=== PATIENT | male | born 1955 | race Caucasian/White ===

== ENCOUNTER 2017-10-16 00:04 | Inpatient (IN) | payer OTHER ==
[2017-10-16] VITALS (14 sets, daily range): BP systolic 111–144; BP diastolic 66–82; PULSE 66–89; RESP 16–22; TEMP 98.4–99.4; O2SAT 86–97
[~2017-10-16] VITALS: Ht 182.9 cm; Wt 115.7 kg
[2017-10-16] MEDS ORDERED: MORPHINE SULFATE 4 MG/ML INJ IV PUSH ONE (00:30)
[2017-10-16 00:51] LABS: AUTOMATED NEUTROPHIL # 12.1 TH/MM3 (1.8-7.7); BASOPHIL % 0.3 % (0.0-2.0); EOSINOPHIL % 0.1 % (0.0-4.0); HEMATOCRIT 35.8 % (39.0-51.0); HEMOGLOBIN 12.6 GM/DL (13.0-17.0); LYMPH % 11.9 % (9.0-44.0); LYMPHOCYTE # 1.7 TH/MM3 (1.0-4.8); MEAN CELL VOLUME 88.4 FL (80.0-100.0); MEAN CORPUSCULAR HEMOGLOBIN 31.1 PG (27.0-34.0); MEAN CORPUSCULAR HGB CONC 35.2 % (32.0-36.0); MONO % 5.2 % (0.0-8.0); MONOCYTE # 0.8 TH/MM3 (0-0.9); NEUT % 82.5 % (16.0-70.0); PLATELET COUNT 172 TH/MM3 (150-450); RED BLOOD COUNT 4.05 MIL/MM3 (4.50-5.90); RED CELL DISTRIBUTION WIDTH 13.5 % (11.6-17.2); WHITE BLOOD COUNT 14.6 TH/MM3 (4.0-11.0)
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
[2017-10-16] MEDS ORDERED: SODIUM CHLOR 0.9% 1000 ML INJ 1,000 ML IV SCH (01:26)
[2017-10-16] MEDS ORDERED: MISCELLANEOUS NURSING INFORMATION XX SCH (01:30)
[2017-10-16] MEDS ORDERED: NALOXONE HCL 0.4 MG/ML AMP IV PUSH PRN (01:30)
[2017-10-16] MEDS ORDERED: CHLORHEXIDINE GLUCONATE 2 % 1 PACK (2 CLOTHS) TOP PRN (01:30)
[2017-10-16] MEDS ORDERED: LACTULOSE SYRUP 20 GM/30 ML CUP PO PRN (01:30)
[2017-10-16] MEDS ORDERED: ONDANSETRON HCL 4 MG/2 ML VIAL IV PUSH PRN (01:30)
[2017-10-16] MEDS ORDERED: BISACODYL 10 MG SUPP RECTAL PRN (01:30)
[2017-10-16] MEDS ORDERED: AMLO5TAB2 PO (01:52)
[2017-10-16] MEDS ORDERED: METO1TAB42 PO (01:52)
[2017-10-16] MEDS ORDERED: LISI-515 PO (01:52)
[2017-10-16] MEDS ORDERED: SITA1TAB2 PO (01:52)
[2017-10-16] MEDS ORDERED: ASPI-516 CHEW (01:52)
[2017-10-16] MEDS ORDERED: ATOR20TA15 PO (01:52)
[2017-10-16] MEDS ORDERED: METF1000 PO (01:52)
[2017-10-16] MEDS ORDERED: GLIP10TA6 PO (01:52)
[2017-10-16] MEDS ORDERED: CLON0.1T PO (01:52)
[2017-10-16] MEDS: ACETAMINOPHEN 1000 MG/100 ML 100 ML IV SCH ×4 (03:01→18:02)
[2017-10-16] MEDS: HYDROmorphone HCL PCA 6 MG/30 ML IV SCH ×2 (03:03→20:49)
[2017-10-16] MEDS: CHLORHEXIDINE GLUCONATE 2 % 1 PACK (2 CLOTHS) TOP SCH (04:00)
[2017-10-16] MEDS ORDERED: IOHEXOL 350 MG/ML 10 ML VIAL (for RAD DIAG) IVCONTRAST ONE (05:15)
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
[2017-10-16] MEDS: PCA - TOTAL MG DILAUDID DELIVERED PER SHIFT OTHER SCH ×3 (06:00→20:49)
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
[2017-10-16] MEDS: RESP: ALBUTEROL 2.5 MG/IPRATROPIUM 0.5 MG NEB (SCH) NEB ×4 (08:30→19:40)
[2017-10-16] MEDS: DOCUSATE SODIUM 50 MG/SENNA 8.6 MG TAB PO SCH ×2 (08:38→20:50)
[2017-10-16] MEDS: GABAPENTIN 100 MG CAP PO SCH ×3 (08:38→18:02)
[2017-10-16] MEDS: LACTULOSE SYRUP 20 GM/30 ML CUP PO SCH (09:00)
[2017-10-16] MEDS ORDERED: cloNIDine HCL 0.1 MG TAB PO SCH (09:15)
[2017-10-16] MEDS: glipiZIDE 10 MG TAB PO SCH (09:15)
[2017-10-16] MEDS ORDERED: DEXTROSE 50% IN WATER 50 ML VIAL(D50) IV PUSH PRN (09:15)
[2017-10-16] MEDS ORDERED: GLUCAGON 1 MG/ML VIAL OTHER PRN (09:15)
[2017-10-16] MEDS: BACITRACIN TOP OINT 15 GM TUBE TOP SCH ×2 (10:30→20:50)
[2017-10-16] MEDS: LISINOPRIL 20 MG TAB PO SCH (10:40)
[2017-10-16] MEDS: METOPROLOL SUCCINATE 25 MG EXTENDED RELEASE TAB PO SCH (10:40)
[2017-10-16] MEDS: amLODIPine BESYLATE 5 MG TAB PO SCH (10:40)
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
[2017-10-16] MEDS: INSULIN NovoLIN REGULAR SUPPLEMENTAL SCALE SQ SCH ×3 (12:47→21:00)
[2017-10-16 13:32] LABS: AUTOMATED NEUTROPHIL # 7.2 TH/MM3 (1.8-7.7); BASOPHIL % 0.1 % (0.0-2.0); EOSINOPHIL # 0.1 TH/MM3 (0-0.4); EOSINOPHIL % 0.6 % (0.0-4.0); HEMATOCRIT 32.5 % (39.0-51.0); HEMOGLOBIN 11.5 GM/DL (13.0-17.0); LYMPH % 21.2 % (9.0-44.0); LYMPHOCYTE # 2.2 TH/MM3 (1.0-4.8); MEAN CELL VOLUME 86.6 FL (80.0-100.0); MEAN CORPUSCULAR HEMOGLOBIN 30.6 PG (27.0-34.0); MEAN CORPUSCULAR HGB CONC 35.4 % (32.0-36.0); MEAN PLATELET VOLUME 7.5 FL (7.0-11.0); MONO % 9.2 % (0.0-8.0); NEUT % 68.9 % (16.0-70.0); PLATELET COUNT 165 TH/MM3 (150-450); RED BLOOD COUNT 3.76 MIL/MM3 (4.50-5.90); RED CELL DISTRIBUTION WIDTH 13.6 % (11.6-17.2); WHITE BLOOD COUNT 10.4 TH/MM3 (4.0-11.0)
[2017-10-16 13:43] LABS: BICARBONATE 24.8 MEQ/L (21.0-32.0); CREATININE 1.28 MG/DL (0.60-1.30)
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
--- NOTE | 2017-10-16 17:55 | EKG ---
Date Performed: 10/16/2017 Time Performed: 11:11:56 PTAGE: 61 years EKG: Sinus rhythm Nonspecific T-wave change Borderline ECG NO PREVIOUS TRACING DOCTOR: Noe Payne Interpretating Date/Time 10/16/2017 17:54:47
[2017-10-16] MEDS: cloNIDine HCL 0.1 MG TAB PO SCH (20:50)
[2017-10-16] MEDS: ATORVASTATIN 20 MG TAB PO SCH (20:50)
[2017-10-17] VITALS (7 sets, daily range): BP systolic 121–151; BP diastolic 73–84; PULSE 76–88; RESP 16–18; TEMP 98.7–101; O2SAT 92–97
[2017-10-17] MEDS: CHLORHEXIDINE GLUCONATE 2 % 1 PACK (2 CLOTHS) TOP SCH ×2 (04:00→21:08)
[2017-10-17 05:11] LABS: AUTOMATED NEUTROPHIL # 6.7 TH/MM3 (1.8-7.7); BASOPHIL % 0.4 % (0.0-2.0); EOSINOPHIL # 0.1 TH/MM3 (0-0.4); EOSINOPHIL % 1.3 % (0.0-4.0); HEMATOCRIT 32.2 % (39.0-51.0); HEMOGLOBIN 11.2 GM/DL (13.0-17.0); LYMPH % 24.4 % (9.0-44.0); LYMPHOCYTE # 2.6 TH/MM3 (1.0-4.8); MEAN CELL VOLUME 89.9 FL (80.0-100.0); MEAN CORPUSCULAR HEMOGLOBIN 31.2 PG (27.0-34.0); MEAN CORPUSCULAR HGB CONC 34.8 % (32.0-36.0); MEAN PLATELET VOLUME 7.9 FL (7.0-11.0); MONO % 10.2 % (0.0-8.0); MONOCYTE # 1.1 TH/MM3 (0-0.9); NEUT % 63.7 % (16.0-70.0); PLATELET COUNT 154 TH/MM3 (150-450); RED BLOOD COUNT 3.58 MIL/MM3 (4.50-5.90); RED CELL DISTRIBUTION WIDTH 13.9 % (11.6-17.2); WHITE BLOOD COUNT 10.5 TH/MM3 (4.0-11.0)
[2017-10-17 05:22] LABS: BICARBONATE 25.5 MEQ/L (21.0-32.0); CALCIUM 8.1 MG/DL (8.5-10.1); CREATININE 1.52 MG/DL (0.60-1.30)
[2017-10-17] MEDS: PCA - TOTAL MG DILAUDID DELIVERED PER SHIFT OTHER SCH (05:50)
--- NOTE | 2017-10-17 05:50 | RADRPT ---
EXAM DATE/TIME: 10/17/2017 04:43 [facility] COMPARISON: CHEST SINGLE AP, October 16, 2017, 10:18. INDICATIONS : Short of breath. MEDICAL HISTORY : Hypertension. Diabetes mellitus type 2. SURGICAL HISTORY : Prostatectomy. ENCOUNTER: Subsequent ACUITY: 1 day PAIN SCORE: Non-responsive. LOCATION: Bilateral chest FINDINGS: A single view of the chest demonstrates hypoinflation with persistent left basilar consolidation. Rig ht lung is grossly clear. Heart size is prominent or compensated. Left clavicular fracture. CONCLUSION: Left basilar consolidation, unchanged. Left clavicular fracture. Percy Wiseman MD on October 17, 2017 at 5:48 Board Certified Radiologist. This report was verified electronically.
[2017-10-17] MEDS: INSULIN NovoLIN REGULAR SUPPLEMENTAL SCALE SQ SCH ×4 (08:13→21:07)
[2017-10-17] MEDS: METHOCARBAMOL 500 MG TAB PO SCH ×3 (08:14→21:08)
[2017-10-17] MEDS: glipiZIDE 10 MG TAB PO SCH (08:15)
[2017-10-17] MEDS: DOCUSATE SODIUM 50 MG/SENNA 8.6 MG TAB PO SCH ×2 (08:16→21:06)
[2017-10-17] MEDS: GABAPENTIN 100 MG CAP PO SCH ×3 (08:16→17:09)
[2017-10-17] MEDS: LISINOPRIL 20 MG TAB PO SCH (08:17)
[2017-10-17] MEDS: LACTULOSE SYRUP 20 GM/30 ML CUP PO SCH (08:17)
[2017-10-17] MEDS: amLODIPine BESYLATE 5 MG TAB PO SCH (08:17)
[2017-10-17] MEDS: BACITRACIN TOP OINT 15 GM TUBE TOP SCH ×2 (08:17→21:07)
[2017-10-17] MEDS: METOPROLOL SUCCINATE 25 MG EXTENDED RELEASE TAB PO SCH (08:17)
[2017-10-17] MEDS: RESP: ALBUTEROL 2.5 MG/IPRATROPIUM 0.5 MG NEB (SCH) NEB ×3 (08:58→19:08)
[2017-10-17] MEDS ORDERED: MORPHINE SULFATE 4 MG/ML INJ IV PUSH PRN (12:45)
[2017-10-17] MEDS ORDERED: SODIUM CHLOR 0.9% 1000 ML INJ 1,000 ML IV ONE (12:45)
[2017-10-17] MEDS ORDERED: oxyCODONE/ACETAMINOPHEN 5 MG/325 MG TAB PO PRN (12:45)
[2017-10-17] MEDS ORDERED: fentaNYL 50 MCG/HR PATCH T-DERMAL SCH (13:00)
[2017-10-17] MEDS: oxyCODONE/ACETAMINOPHEN 10 MG/325 MG TAB PO PRN (13:35)
[2017-10-17] MEDS ORDERED: METHOCARBAMOL 500 MG TAB PO SCH (14:00)
[2017-10-17] MEDS: LIDOCAINE HCL 5% PATCH T-DERMAL SCH (15:11)
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
[2017-10-17] MEDS: REMOVE OLD LIDOCAINE PATCH T-DERMAL SCH (21:00)
[2017-10-17] MEDS: cloNIDine HCL 0.1 MG TAB PO SCH (21:06)
[2017-10-17] MEDS: ATORVASTATIN 20 MG TAB PO SCH (21:06)
[2017-10-18] VITALS (8 sets, daily range): BP systolic 113–184; BP diastolic 68–104; PULSE 81–111; RESP 17–19; TEMP 98–100.9; O2SAT 91–96
[2017-10-18] MEDS: oxyCODONE/ACETAMINOPHEN 10 MG/325 MG TAB PO PRN ×5 (04:08→21:09)
[2017-10-18 04:24] LABS: HEMATOCRIT 28.8 % (39.0-51.0)
[2017-10-18 04:47] LABS: ALBUMIN 3.3 GM/DL (3.4-5.0); ALT (GPT) 26 U/L (12-78); AST (GOT) 43 U/L (15-37); BICARBONATE 28.3 MEQ/L (21.0-32.0); BLOOD UREA NITROGEN 41 MG/DL (7-18); CHLORIDE 100 MEQ/L (98-107); CREATININE 1.66 MG/DL (0.60-1.30); GLOMERULAR FILTRATION RATE 42 ML/MIN (>89); GLUCOSE,RANDOM 155 MG/DL (74-106); SODIUM (NA) 136 MEQ/L (136-145)
[2017-10-18 04:49] LABS: ALKALINE PHOSPHATASE 43 U/L (45-117); TOTAL BILIRUBIN ADULT 0.7 MG/DL (0.2-1.0); TOTAL PROTEIN 6.9 GM/DL (6.4-8.2)
[2017-10-18] MEDS ORDERED: SODIUM CHLOR 0.9% 1000 ML INJ 1,000 ML IV ONE (06:45)
--- NOTE | 2017-10-18 07:09 | RADRPT ---
EXAM DATE/TIME: 10/18/2017 05:37 [facility] COMPARISON: CHEST SINGLE AP, October 17, 2017, 4:43. INDICATIONS : Chest pain, follow up trauma, evaluate hemothorax MEDICAL HISTORY : Hypertension. Diabetes mellitus type II. hemothorax SURGICAL HISTORY : Prostatectomy. ENCOUNTER: Subsequent ACUITY: 3 days PAIN SCORE: 10/10 LOCATION: Bilateral chest FINDINGS: The patient's chin obscures portions of the pulmonary apices. Persistent and increasing consolidatio n left mid and lower lung with loss of delineation of the entire left hemidiaphragm and portions of t he left heart border. Right lung is clear. Comminuted fracture of the mid left clavicle and left sc apula. CONCLUSION: Increasing consolidation left mid and lower lung. Jose Luis Varma MD on October 18, 2017 at 7:06 Board Certified Radiologist. This report was verified electronically.
[2017-10-18] MEDS: RESP: ALBUTEROL 2.5 MG/IPRATROPIUM 0.5 MG NEB (SCH) NEB ×4 (07:47→20:03)
[2017-10-18] MEDS: INSULIN NovoLIN REGULAR SUPPLEMENTAL SCALE SQ SCH ×4 (08:00→20:50)
[2017-10-18] MEDS: METHOCARBAMOL 500 MG TAB PO SCH ×3 (08:00→18:48)
[2017-10-18] MEDS: DOCUSATE SODIUM 50 MG/SENNA 8.6 MG TAB PO SCH ×2 (08:58→20:49)
[2017-10-18] MEDS: METOPROLOL SUCCINATE 25 MG EXTENDED RELEASE TAB PO SCH (08:58)
[2017-10-18] MEDS: GABAPENTIN 100 MG CAP PO SCH ×3 (08:58→17:46)
[2017-10-18] MEDS: amLODIPine BESYLATE 5 MG TAB PO SCH (08:58)
[2017-10-18] MEDS: LISINOPRIL 20 MG TAB PO SCH (08:58)
[2017-10-18] MEDS: glipiZIDE 10 MG TAB PO SCH (08:59)
[2017-10-18] MEDS: BACITRACIN TOP OINT 15 GM TUBE TOP SCH ×2 (08:59→20:48)
[2017-10-18] MEDS: LIDOCAINE HCL 5% PATCH T-DERMAL SCH (09:00)
[2017-10-18] MEDS: LACTULOSE SYRUP 20 GM/30 ML CUP PO SCH (09:00)
[2017-10-18] MEDS: SODIUM CHLOR 0.9% 1000 ML INJ 1,000 ML IV SCH ×2 (09:04→17:46)
[2017-10-18] MEDS: MAGNESIUM HYDROXIDE SUSP 30 ML CUP PO PRN (16:45)
[2017-10-18] MEDS: SENNOSIDES 8.6 MG TAB PO PRN ×2 (16:45→20:49)
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
[2017-10-18 19:01] LABS: AMORPHOUS SEDIMENT, URINE RARE; BILIRUBIN, URINE NEG (NEG); BLOOD, URINE TRACE (NEG); GLUCOSE,URINE NEG (NEG); HYALINE CAST, URINE 6 /lpf (RARE); KETONE, URINE NEG (NEG); MUCUS URINE FEW /lpf (OCC); NITRITE,URINE NEG (NEG); SQUAMOUS EPITHELIAL CELL URINE <1 /hpf (0-5); URINE COLOR YELLOW (YELLW/STRAW); URINE LEUKOCYTE ESTERASE NEG (NEG)
[2017-10-18 19:04] LABS: CREATININE, RANDOM URINE 157.8 MG/DL
[2017-10-18] MEDS: cloNIDine HCL 0.1 MG TAB PO SCH (20:49)
[2017-10-18] MEDS: ATORVASTATIN 20 MG TAB PO SCH (20:49)
[2017-10-18] MEDS: REMOVE OLD LIDOCAINE PATCH T-DERMAL SCH (20:49)
[2017-10-19] VITALS (7 sets, daily range): BP systolic 133–158; BP diastolic 73–83; PULSE 83–94; RESP 19–21; TEMP 97.4–100.3; O2SAT 92–97
[2017-10-19] MEDS: SODIUM CHLOR 0.9% 1000 ML INJ 1,000 ML IV SCH (02:15)
[2017-10-19] MEDS: MAGNESIUM HYDROXIDE SUSP 30 ML CUP PO PRN (02:16)
[2017-10-19] MEDS: oxyCODONE/ACETAMINOPHEN 10 MG/325 MG TAB PO PRN ×5 (02:16→22:03)
[2017-10-19] MEDS: CHLORHEXIDINE GLUCONATE 2 % 1 PACK (2 CLOTHS) TOP SCH (03:16)
[2017-10-19 04:37] LABS: BICARBONATE 27.6 MEQ/L (21.0-32.0); CREATININE 1.8 MG/DL (0.60-1.30)
[2017-10-19] MEDS: RESP: ALBUTEROL 2.5 MG/IPRATROPIUM 0.5 MG NEB (SCH) NEB ×4 (07:42→19:18)
[2017-10-19] MEDS: INSULIN NovoLIN REGULAR SUPPLEMENTAL SCALE SQ SCH ×4 (08:00→22:02)
[2017-10-19] MEDS: GABAPENTIN 100 MG CAP PO SCH ×3 (08:25→17:46)
[2017-10-19] MEDS: LISINOPRIL 20 MG TAB PO SCH (08:25)
[2017-10-19] MEDS: glipiZIDE 10 MG TAB PO SCH (08:25)
[2017-10-19] MEDS: LACTULOSE SYRUP 20 GM/30 ML CUP PO SCH (08:25)
[2017-10-19] MEDS: METHOCARBAMOL 500 MG TAB PO SCH ×2 (08:26→16:00)
[2017-10-19] MEDS: amLODIPine BESYLATE 5 MG TAB PO SCH (08:26)
[2017-10-19] MEDS: DOCUSATE SODIUM 50 MG/SENNA 8.6 MG TAB PO SCH ×2 (08:26→22:01)
[2017-10-19] MEDS: BACITRACIN TOP OINT 15 GM TUBE TOP SCH ×2 (08:26→22:01)
[2017-10-19] MEDS: METOPROLOL SUCCINATE 25 MG EXTENDED RELEASE TAB PO SCH (08:26)
[2017-10-19] MEDS: LIDOCAINE HCL 5% PATCH T-DERMAL SCH (08:29)
[2017-10-19] MEDS: fentaNYL 50 MCG/HR PATCH T-DERMAL SCH (10:21)
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
[2017-10-19] MEDS: HEPARIN SODIUM - SQ 10,000 UNITS/ML VIAL SQ SCH (17:57)
--- NOTE | 2017-10-19 20:10 | RADRPT ---
EXAM DATE/TIME: 10/19/2017 16:39 [facility] COMPARISON: No previous studies available for comparison. INDICATIONS : Increased Bun and Creatinine. MEDICAL HISTORY : Hypertension. Diabetes mellitus type 2. SURGICAL HISTORY : Prostatectomy. ENCOUNTER: Initial ACUITY: 1 day PAIN SCORE: 7/10 LOCATION: Bilateral flank MEASUREMENTS: RIGHT KIDNEY: 10.8 x 6.9 x 6.0 cm LEFT KIDNEY: 11.1 x 5.4 x 6.9 cm FINDINGS: No hydronephrosis. No suspicious renal mass identified. No perinephric fluid. 2.2 cm cyst lower pole left kidney. Bladder unremarkable. CONCLUSION: 1. No acute findings. 2.2 cm cyst left kidney. Bladder unremarkable. Fermín Warren MD on October 19, 2017 at 20:06 Board Certified Radiologist. This report was verified electronically.
[2017-10-19] MEDS: REMOVE OLD LIDOCAINE PATCH T-DERMAL SCH (21:00)
[2017-10-19] MEDS: ATORVASTATIN 20 MG TAB PO SCH (22:01)
[2017-10-19] MEDS: cloNIDine HCL 0.1 MG TAB PO SCH (22:01)
[2017-10-20] MEDS: HEPARIN SODIUM - SQ 10,000 UNITS/ML VIAL SQ SCH ×3 (01:50→16:14)
[2017-10-20] MEDS: oxyCODONE/ACETAMINOPHEN 10 MG/325 MG TAB PO PRN ×2 (01:50→06:15)
[2017-10-20] MEDS: METHOCARBAMOL 500 MG TAB PO SCH ×4 (01:51→23:26)
[2017-10-20 03:50] VITALS: BP 136/72; PULSE 84; RESP 18; TEMP 97.8; O2SAT 93
[2017-10-20] MEDS: CHLORHEXIDINE GLUCONATE 2 % 1 PACK (2 CLOTHS) TOP SCH (04:00)
[2017-10-20 04:32] LABS: BICARBONATE 28.2 MEQ/L (21.0-32.0); CREATININE 1.36 MG/DL (0.60-1.30)
--- NOTE | 2017-10-20 06:09 | RADRPT ---
EXAM DATE/TIME: 10/20/2017 05:06 [facility] COMPARISON: CHEST SINGLE AP, October 18, 2017, 5:37. INDICATIONS : Short of breath. MEDICAL HISTORY : Hypertension. Diabetes mellitus type II. hemothorax SURGICAL HISTORY : Prostatectomy. ENCOUNTER: Subsequent ACUITY: 1 week PAIN SCORE: 0/10 LOCATION: Bilateral chest FINDINGS: Persistent consolidation in the left mid and lower lung and hazy opacity throughout the entire left h emithorax. Right lung is clear. The heart is normal size. CONCLUSION: Persistent consolidation left mid and lower lung and probable increasing left pleural effusion. Jose Luis Varma MD on October 20, 2017 at 6:07 Board Certified Radiologist. This report was verified electronically.
[2017-10-20 07:40] VITALS: BP 142/73; PULSE 84; RESP 21; TEMP 98.7; O2SAT 93
[2017-10-20] MEDS: METOPROLOL SUCCINATE 25 MG EXTENDED RELEASE TAB PO SCH (08:09)
[2017-10-20] MEDS: DOCUSATE SODIUM 50 MG/SENNA 8.6 MG TAB PO SCH ×2 (08:09→21:14)
[2017-10-20] MEDS: GABAPENTIN 100 MG CAP PO SCH ×3 (08:09→17:05)
[2017-10-20] MEDS: glipiZIDE 10 MG TAB PO SCH (08:09)
[2017-10-20] MEDS: amLODIPine BESYLATE 5 MG TAB PO SCH (08:09)
[2017-10-20] MEDS: LACTULOSE SYRUP 20 GM/30 ML CUP PO SCH (08:10)
[2017-10-20] MEDS: LIDOCAINE HCL 5% PATCH T-DERMAL SCH (08:19)
[2017-10-20] MEDS: BACITRACIN TOP OINT 15 GM TUBE TOP SCH ×2 (08:20→21:15)
[2017-10-20] MEDS: INSULIN NovoLIN REGULAR SUPPLEMENTAL SCALE SQ SCH ×4 (08:41→21:17)
--- NOTE | 2017-10-20 10:49 | HHI.NPPN ---
Subjective Renal Failure: Acute Interval History Standing at bedside. He was retaining urine therefor a luis was placed. Renal function has improved. (Elizabeth Valenzuela) Objective Data Data 10/20/17 10/21/17 18:59 06:59 Intake Total 480 ml Output Total 400 ml Balance 80 ml Intake Oral 480 ml Output Urine Total 400 ml # Bowel Movements 0 Vital Signs Date Time Temp Pulse Resp B/P (MAP) Pulse Ox O2 Delivery O2 Flow Rate FiO2 10/20/17 07:40 98.7 84 21 142/73 (96) 93 10/20/17 03:50 97.8 84 18 136/72 (93) 93 10/19/17 23:10 97.4 89 20 134/83 (100) 94 10/19/17 19:30 100.3 94 20 158/79 (105) 93 10/19/17 15:36 97 Nasal Cannula 4.00 10/19/17 15:03 99.6 83 19 149/74 (99) 94 10/19/17 11:39 98.7 88 21 150/81 (104) 92 (Elizabeth Valenzuela) -: 10/18/17 0400 10/20/17 0317 Imaging Last 72 hours Impressions Chest X-Ray 10/20/17 0600 Signed Impressions: Service Date/Time: Friday, October 20, 2017 05:06 - CONCLUSION: Persistent consolidation left mid and lower lung and probable increasing left pleural effusion. Jose Luis Varma MD Renal Ultrasound 10/19/17 0000 Signed Impressions: Service Date/Time: Thursday, October 19, 2017 16:39 - CONCLUSION: 1. No acute findings. 2.2 cm cyst left kidney. Bladder unremarkable. Fermín Warren MD Chest X-Ray 10/18/17 0600 Signed Impressions: Service Date/Time: Wednesday, October 18, 2017 05:37 - CONCLUSION: Increasing consolidation left mid and lower lung. Jose Luis Varma MD Tubes & Lines: Luis (Elizabeth Valenzuela) Physical Exam General Appearance: Well Developed, Well Nourished, Comfortable, Obese (Elizabeth Valenzuela) Eyes Eye Exam: Pupils Equal (Elizabeth Valenzuela) Throat Throat Exam: Oral Mucosa [place] & Moist (Elizabeth Valenzuela) Neck Neck Exam: Neck Supple (Elizabeth Valenzuela) Pulmonary Resp Exam: Clear Bilaterally, Breath Sounds Equal (Elizabeth Valenzuela) Cardiology CV Exam: Regular, Normal Sinus Rhythm (Elizabeth Valenzuela) Gastrointestinal/Abdomen GI Exam: Soft, Non-Tender, Bowel Sounds Present (Elizabeth Valenzuela) Musculoskeletal MS Exam: Joints Intact, Normal Gait, Normal Tone (Elizabeth Valenzuela) Integumentary Skin Exam: Clear, Warm, Dry (Elizabeth Valenzuela) Extremeties Extremities Exam: No Edema, Pedal Pulses Palpable (Elizabeth Valenzuela) Neurologic Neuro Exam: Alert, Awake, Oriented, Speech Clear, Moving All Extremities (Elizabeth Valenzuela) Psychiatric Psych Exam: Appropriate Responses (Elizabeth Valenzuela) Assessment/Plan Discussed Condition With: Patient Assessment Summary: DORA/Acute Renal Failure Problem List: (1) DORA (acute kidney injury) ICD Codes: N17.9 - Acute kidney failure, unspecified Plan: Unknown baseline DORA due to urinary retention, most likely due to narcotic use s/p luis placement, he is non oliguric renal function has improved. Attempt voiding trial tomorrow after bronch, if successful he can be discharged UA unremarkable Off IVF Normal renal US (2) Trauma ICD Codes: T14.90XA - Injury, unspecified, initial encounter Plan: Non surgical management PRN pain medications. (Elizabeth Valenzuela) Problem List: (1) DORA (acute kidney injury) ICD Codes: N17.9 - Acute kidney failure, unspecified Plan: Unknown baseline DORA due to urinary retention, most likely due to narcotic use s/p luis placement, he is non oliguric renal function has improved. Attempt voiding trial tomorrow after bronch, if successful he can be discharged UA unremarkable Off IVF Normal renal US (2) Trauma ICD Codes: T14.90XA - Injury, unspecified, initial encounter Plan: Non surgical management PRN pain medications. Plan patient was seen and examined. Agree with above assessment and plan. (To Tavera MD) Elizabeth Valenzuela Oct 20, 2017 10:49 To Tavera MD Oct 20, 2017 20:53
[2017-10-20 11:52] VITALS: BP 134/78; PULSE 76; RESP 21; TEMP 96.9; O2SAT 95
[2017-10-20 12:00] VITALS: BP 185/88; PULSE 93; RESP 18; TEMP 100.3; O2SAT 93
[2017-10-20] MEDS ORDERED: REMOVE OLD DURAGESIC (FENTANYL) PATCH T-DERMAL SCH (13:00)
[2017-10-20 15:39] VITALS: BP 181/76; PULSE 94; RESP 21; TEMP 99.2; O2SAT 93
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
[2017-10-20] MEDS: ATORVASTATIN 20 MG TAB PO SCH (21:14)
[2017-10-20] MEDS: cloNIDine HCL 0.1 MG TAB PO SCH (21:14)
[2017-10-20] MEDS: REMOVE OLD LIDOCAINE PATCH T-DERMAL SCH (21:24)
[2017-10-20 21:56] VITALS: O2SAT 97
[2017-10-21 00:31] VITALS: BP 149/76; PULSE 92; RESP 18; TEMP 100.2; O2SAT 93
[2017-10-21] MEDS ORDERED: SODIUM CHLORID 0.9% 500 ML IV PRN (02:00)
[2017-10-21] MEDS ORDERED: POVIDONE IODINE 5% (ANTISEPSIS KIT) 4 APPLICATIONS EACH NARE PRN (02:00)
[2017-10-21] MEDS ORDERED: LACTATED RINGER'S 1000 ML IV PRN (02:00)
[2017-10-21] MEDS ORDERED: CHLORHEXIDINE GLUCONATE 2 % 1 PACK (2 CLOTHS) TOPICAL PRN (02:00)
[2017-10-21] MEDS: HEPARIN SODIUM - SQ 10,000 UNITS/ML VIAL SQ SCH ×3 (02:14→16:06)
[2017-10-21] MEDS: CHLORHEXIDINE GLUCONATE 2 % 1 PACK (2 CLOTHS) TOP SCH (03:05)
[2017-10-21] MEDS: oxyCODONE/ACETAMINOPHEN 10 MG/325 MG TAB PO PRN ×4 (03:06→20:30)
[2017-10-21 04:51] LABS: HEMATOCRIT 26.9 % (39.0-51.0); HEMOGLOBIN 9.6 GM/DL (13.0-17.0); MEAN CELL VOLUME 88.1 FL (80.0-100.0); MEAN CORPUSCULAR HEMOGLOBIN 31.4 PG (27.0-34.0); MEAN CORPUSCULAR HGB CONC 35.6 % (32.0-36.0); MEAN PLATELET VOLUME 7.8 FL (7.0-11.0); PLATELET COUNT 206 TH/MM3 (150-450); RED BLOOD COUNT 3.05 MIL/MM3 (4.50-5.90); RED CELL DISTRIBUTION WIDTH 13.4 % (11.6-17.2); WHITE BLOOD COUNT 7.9 TH/MM3 (4.0-11.0)
[2017-10-21 05:21] LABS: BICARBONATE 25.6 MEQ/L (21.0-32.0); CALCIUM 8.2 MG/DL (8.5-10.1); CREATININE 1.17 MG/DL (0.60-1.30)
[2017-10-21 05:59] VITALS: BP 127/78; PULSE 80; RESP 18; TEMP 98.1; O2SAT 97
[2017-10-21] MEDS: INSULIN NovoLIN REGULAR SUPPLEMENTAL SCALE SQ SCH ×4 (07:30→20:31)
[2017-10-21 08:00] VITALS: BP 109/68; PULSE 75; RESP 20; TEMP 98.1; O2SAT 98
[2017-10-21] MEDS: METHOCARBAMOL 500 MG TAB PO SCH ×2 (08:19→17:15)
[2017-10-21] MEDS: METOPROLOL SUCCINATE 25 MG EXTENDED RELEASE TAB PO SCH (08:19)
[2017-10-21] MEDS: GABAPENTIN 100 MG CAP PO SCH ×3 (08:19→17:16)
[2017-10-21] MEDS: glipiZIDE 10 MG TAB PO SCH (08:26)
[2017-10-21] MEDS: LACTULOSE SYRUP 20 GM/30 ML CUP PO SCH (08:27)
[2017-10-21] MEDS: amLODIPine BESYLATE 5 MG TAB PO SCH (08:27)
[2017-10-21] MEDS: DOCUSATE SODIUM 50 MG/SENNA 8.6 MG TAB PO SCH ×2 (08:28→20:29)
[2017-10-21] MEDS: LIDOCAINE HCL 5% PATCH T-DERMAL SCH (08:28)
[2017-10-21] MEDS: BACITRACIN TOP OINT 15 GM TUBE TOP SCH ×3 (08:28→20:33)
[2017-10-21] MEDS ORDERED: DO NOT ADM ANY ANTICOAGULANT DRUGS PRN (12:11)
--- NOTE | 2017-10-21 13:00 | RADRPT ---
EXAM DATE/TIME: 10/21/2017 12:42 [facility] COMPARISON: CHEST SINGLE AP, October 20, 2017, 5:06. INDICATIONS : Post bronchoscopy. MEDICAL HISTORY : Hypertension. Diabetes mellitus type II. SURGICAL HISTORY : Prostatectomy. ENCOUNTER: Initial ACUITY: 4 - 6 days PAIN SCORE: 0/10 LOCATION: Bilateral chest FINDINGS: Status post bronchoscopy. There is no evidence of pneumothorax. The right lung remains clear and well -aerated. There continues to be consolidation throughout the left lung without significant change in its overall appearance compared to the prior exam. The heart size is enlarged but stable.. CONCLUSION: Status post bronchoscopy. No evidence of pneumothorax. Clint Rob MD on October 21, 2017 at 12:57 Board Certified Radiologist. This report was verified electronically.
[2017-10-21 13:30] VITALS: BP 135/86; PULSE 75; RESP 20; TEMP 98.3; O2SAT 94
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
--- NOTE | 2017-10-21 15:54 | HHI.NPPN ---
Subjective Renal Failure: Acute Interval History Events noted. s/p bronchoscopy for atelectasis left lung. Patient's renal function has improved. Objective Data Data 10/21/17 10/22/17 19:00 07:00 Output Total 500 ml Balance -500 ml Output Urine Total 500 ml Vital Signs Date Time Temp Pulse Resp B/P (MAP) Pulse Ox O2 Delivery O2 Flow Rate FiO2 10/21/17 13:10 98.5 75 16 126/72 (90) 94 Nasal Cannula 3 10/21/17 13:00 74 16 126/72 (90) 91 Nasal Cannula 3 10/21/17 12:45 74 16 125/70 (88) 95 Nasal Cannula 4 10/21/17 12:30 75 16 131/73 (92) 92 Nasal Cannula 4 10/21/17 12:15 81 16 133/75 (94) 97 Simple Mask 8 10/21/17 12:10 98.6 83 15 141/82 (101) 94 Simple Mask 8 10/21/17 08:33 Room Air 4.00 Humidified 10/21/17 08:00 98.1 75 20 109/68 (82) 98 10/21/17 05:59 98.1 80 18 127/78 (94) 97 10/21/17 00:31 100.2 92 18 149/76 (100) 93 10/20/17 21:56 97 Nasal Cannula 4.00 -: 10/21/17 0407 10/21/17 0407 Tubes & Lines: Luis Physical Exam General Appearance: Well Developed, Well Nourished, Comfortable, Obese Eyes Eye Exam: Pupils Equal Throat Throat Exam: Oral Mucosa [place] & Moist Neck Neck Exam: Neck Supple Pulmonary Resp Exam: Clear Bilaterally, Breath Sounds Equal Cardiology CV Exam: Regular, Normal Sinus Rhythm Gastrointestinal/Abdomen GI Exam: Soft, Non-Tender, Bowel Sounds Present Musculoskeletal MS Exam: Joints Intact, Normal Gait, Normal Tone Integumentary Skin Exam: Clear, Warm, Dry Extremeties Extremities Exam: No Edema, Pedal Pulses Palpable Neurologic Neuro Exam: Alert, Awake, Oriented, Speech Clear, Moving All Extremities Psychiatric Psych Exam: Appropriate Responses Assessment/Plan Discussed Condition With: Patient Assessment Summary: DORA/Acute Renal Failure Problem List: (1) DORA (acute kidney injury) ICD Codes: N17.9 - Acute kidney failure, unspecified Plan: Unknown baseline DORA due to urinary retention, most likely due to narcotic use s/p luis placement, he is non oliguric renal function has improved. Attempt voiding trial. (2) Trauma ICD Codes: T14.90XA - Injury, unspecified, initial encounter Plan: Non surgical management PRN pain medications. Plan I will sign off at this time. To Tavera MD Oct 21, 2017 15:54
[2017-10-21 16:00] VITALS: BP 143/69; PULSE 83; RESP 20; TEMP 98.7; O2SAT 94
[2017-10-21 20:00] VITALS: BP 155/74; PULSE 91; RESP 22; TEMP 98.7; O2SAT 96
[2017-10-21] MEDS: cloNIDine HCL 0.1 MG TAB PO SCH (20:29)
[2017-10-21] MEDS: REMOVE OLD LIDOCAINE PATCH T-DERMAL SCH (20:34)
[2017-10-21] MEDS: ATORVASTATIN 20 MG TAB PO SCH (20:35)
[2017-10-22] VITALS (7 sets, daily range): BP systolic 111–163; BP diastolic 55–83; PULSE 72–92; RESP 16–20; TEMP 96.6–98.5; O2SAT 94–97
[2017-10-22] MEDS: METHOCARBAMOL 500 MG TAB PO SCH ×3 (00:15→18:43)
[2017-10-22] MEDS: HEPARIN SODIUM - SQ 10,000 UNITS/ML VIAL SQ SCH ×3 (00:17→18:43)
[2017-10-22] MEDS: CHLORHEXIDINE GLUCONATE 2 % 1 PACK (2 CLOTHS) TOP SCH (04:00)
[2017-10-22] MEDS: oxyCODONE/ACETAMINOPHEN 10 MG/325 MG TAB PO PRN ×4 (04:34→21:00)
[2017-10-22] MEDS: glipiZIDE 10 MG TAB PO SCH (08:30)
[2017-10-22] MEDS: amLODIPine BESYLATE 5 MG TAB PO SCH (08:30)
[2017-10-22] MEDS: DOCUSATE SODIUM 50 MG/SENNA 8.6 MG TAB PO SCH ×2 (08:30→21:02)
[2017-10-22] MEDS: GABAPENTIN 100 MG CAP PO SCH ×3 (08:31→18:43)
[2017-10-22] MEDS: INSULIN NovoLIN REGULAR SUPPLEMENTAL SCALE SQ SCH ×4 (08:32→21:03)
[2017-10-22] MEDS: LIDOCAINE HCL 5% PATCH T-DERMAL SCH (08:33)
[2017-10-22] MEDS: fentaNYL 50 MCG/HR PATCH T-DERMAL SCH (08:33)
[2017-10-22] MEDS: METOPROLOL SUCCINATE 25 MG EXTENDED RELEASE TAB PO SCH (08:36)
[2017-10-22] MEDS: LACTULOSE SYRUP 20 GM/30 ML CUP PO SCH (08:37)
[2017-10-22] MEDS: BACITRACIN TOP OINT 15 GM TUBE TOP SCH ×2 (08:37→21:05)
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
[2017-10-22 13:06] LABS: PROTHROMBIN TIME - PATIENT 10.4 SEC (9.8-11.6)
--- NOTE | 2017-10-22 18:01 | RADRPT ---
EXAM DATE/TIME: 10/22/2017 16:37 [facility] COMPARISON: CHEST SINGLE AP, October 21, 2017, 12:42. INDICATIONS : Left pleural effusion. MEDICAL HISTORY : Hypertension. Diabetes mellitus type 2. SURGICAL HISTORY : Prostatectomy. ENCOUNTER: Initial ACUITY: 1 week PAIN SCORE: 2/10 LOCATION: Left chest MEASUREMENTS: SKIN TO PARIETAL PLEURA: 3.5 cm SKIN TO MAX SAFE DEPTH: 5.2 cm ESTIMATED FLUID VOLUME: 300 cc FLUID COMPOSITION: simple FINDINGS: No large effusion is observed. A small pocket of fluid is seen fairly cephalad within the hemithorax. This is too small for safe thoracentesis. CONCLUSION: Small effusion with insufficient volume for safe thoracentesis. Jose Luis Santacruz Jr., MD on October 22, 2017 at 17:57 Board Certified Radiologist. This report was verified electronically.
[2017-10-22] MEDS: REMOVE OLD LIDOCAINE PATCH T-DERMAL SCH (21:00)
[2017-10-22] MEDS: ATORVASTATIN 20 MG TAB PO SCH (21:02)
[2017-10-22] MEDS: cloNIDine HCL 0.1 MG TAB PO SCH (21:02)
[2017-10-22] MEDS: MAGNESIUM HYDROXIDE SUSP 30 ML CUP PO PRN (21:06)
--- NOTE | 2017-10-22 21:38 | MP ---
cc: Ish Fonseca MD DATE OF OPERATION: 10/21/2017 PREOPERATIVE DIAGNOSES: Atelectasis of the right lung, massive secretions. POSTOPERATIVE DIAGNOSES: Atelectasis of the right lung, massive secretions. OPERATIVE PROCEDURE: Bronchoscopy, lavage of both bronchial trees. SURGEON: Ish Fonseca MD ANESTHESIA: General. ESTIMATED BLOOD LOSS: None. DESCRIPTION OF PROCEDURE: The patient is intubated and prepped and then bronchoscope is inserted into the trachea. Trachea is clear and no lesions are found. Bifurcation of the bronchi is encountered and upon this, there is a massive amount of thick yellowish material obstructing the mainstem bronchus. This one is so thick that it took a while to mobilize and the whole left mainstem bronchus is full of the yellowish material. Once this is mobilized, the large chunks of this extracted and then the bronchial tree on the left is irrigated with copious amounts of saline and second and third ____ branches of bronchi in the left upper and lower lobe are accessed and all the debris removed. Once this is completely clean, the right lung is ____ which is fairly clean. Bronchoscope was then withdrawn. The patient was taken out of the bronchoscopy suite in stable condition. Ish Fonseca MD SJ/rt , 09:03 PM , 09:37 PM
[2017-10-23] VITALS (7 sets, daily range): BP systolic 129–185; BP diastolic 74–87; PULSE 70–84; RESP 16–19; TEMP 97.5–98.8; O2SAT 93–98
[2017-10-23] MEDS: HEPARIN SODIUM - SQ 10,000 UNITS/ML VIAL SQ SCH ×4 (00:58→18:05)
[2017-10-23] MEDS: CHLORHEXIDINE GLUCONATE 2 % 1 PACK (2 CLOTHS) TOP SCH (00:58)
[2017-10-23] MEDS: oxyCODONE/ACETAMINOPHEN 10 MG/325 MG TAB PO PRN ×4 (00:58→22:19)
[2017-10-23] MEDS: METHOCARBAMOL 500 MG TAB PO SCH ×4 (00:58→23:49)
[2017-10-23 05:02] LABS: AUTOMATED NEUTROPHIL # 4.9 TH/MM3 (1.8-7.7); BASOPHIL # 0.1 TH/MM3 (0-0.2); BASOPHIL % 0.8 % (0.0-2.0); EOSINOPHIL # 0.4 TH/MM3 (0-0.4); EOSINOPHIL % 5.1 % (0.0-4.0); HEMATOCRIT 27.1 % (39.0-51.0); HEMOGLOBIN 9.6 GM/DL (13.0-17.0); LYMPH % 22.2 % (9.0-44.0); LYMPHOCYTE # 1.8 TH/MM3 (1.0-4.8); MEAN CELL VOLUME 88.5 FL (80.0-100.0); MEAN CORPUSCULAR HEMOGLOBIN 31.2 PG (27.0-34.0); MEAN CORPUSCULAR HGB CONC 35.2 % (32.0-36.0); MEAN PLATELET VOLUME 7.4 FL (7.0-11.0); MONOCYTE # 0.9 TH/MM3 (0-0.9); NEUT % 60.9 % (16.0-70.0); PLATELET COUNT 236 TH/MM3 (150-450); RED BLOOD COUNT 3.07 MIL/MM3 (4.50-5.90); RED CELL DISTRIBUTION WIDTH 13.7 % (11.6-17.2); WHITE BLOOD COUNT 8.1 TH/MM3 (4.0-11.0)
[2017-10-23 05:16] LABS: BICARBONATE 27.8 MEQ/L (21.0-32.0); CALCIUM 8.6 MG/DL (8.5-10.1); CREATININE 1.09 MG/DL (0.60-1.30)
--- NOTE | 2017-10-23 05:17 | RADRPT ---
EXAM DATE/TIME: 10/23/2017 04:13 [facility] COMPARISON: CHEST SINGLE AP, October 21, 2017, 12:42. INDICATIONS : Follow up trauma. Pulmonary contusion. Short of breath. MEDICAL HISTORY : Hypertension. Diabetes mellitus type II. hemothorax SURGICAL HISTORY : Prostatectomy. ENCOUNTER: Subsequent ACUITY: 1 week PAIN SCORE: 7/10 LOCATION: Left chest FINDINGS: A single AP portable view of the chest was obtained and again demonstrates multiple left rib fracture s with abnormal opacity in the left hemithorax. There is fluid now noted along the upper and mid late ral chest wall. The costophrenic angle remains blunted and there is dense opacity at the left lung ba se. The right lung remains clear. The heart size is mildly enlarged. A left mid clavicular fracture a nd scapular fractures are noted. There is no pneumothorax. CONCLUSION: 1. Abnormal opacification of the left hemithorax with apparent fluid now noted extending along the up per and lateral chest wall. 2. Multiple left rib fractures with no pneumothorax. Cortez Syed MD on October 23, 2017 at 5:13 Board Certified Radiologist. This report was verified electronically.
[2017-10-23] MEDS: INSULIN NovoLIN REGULAR SUPPLEMENTAL SCALE SQ SCH ×4 (08:00→21:00)
[2017-10-23] MEDS: LIDOCAINE HCL 5% PATCH T-DERMAL SCH (08:52)
[2017-10-23] MEDS: DOCUSATE SODIUM 50 MG/SENNA 8.6 MG TAB PO SCH ×2 (08:52→20:58)
[2017-10-23] MEDS: LACTULOSE SYRUP 20 GM/30 ML CUP PO SCH (08:52)
[2017-10-23] MEDS: GABAPENTIN 100 MG CAP PO SCH ×3 (08:52→18:04)
[2017-10-23] MEDS: glipiZIDE 10 MG TAB PO SCH (08:53)
[2017-10-23] MEDS: METOPROLOL SUCCINATE 25 MG EXTENDED RELEASE TAB PO SCH (08:53)
[2017-10-23] MEDS: amLODIPine BESYLATE 5 MG TAB PO SCH (08:53)
[2017-10-23] MEDS: BACITRACIN TOP OINT 15 GM TUBE TOP SCH ×2 (08:54→21:11)
--- NOTE | 2017-10-23 13:39 | RADRPT ---
EXAM DATE/TIME: 10/23/2017 13:22 [facility] COMPARISON: CHEST SINGLE AP, October 23, 2017, 4:13. INDICATIONS : Shortness of breath; evaluate for infiltrate. RADIATION DOSE: 9.59 CTDIvol (mGy) MEDICAL HISTORY : Carcinoma, prostate. Cardiovascular disease Hypertension. Diabetes. SURGICAL HISTORY : Prostatectomy. ENCOUNTER: Initial ACUITY: 1 day PAIN SCALE: 0/10 LOCATION: Bilateral chest TECHNIQUE: Volumetric scanning of the chest was performed. Using automated exposure control and adjustment of t he mA and/or kV according to patient size, radiation dose was kept as low as reasonably achievable to obtain optimal diagnostic quality images. DICOM format image data is available electronically for r eview and comparison. Follow-up recommendations for detected pulmonary nodules are based at a minimum on nodule size and pa tient risk factors according to Fleischner Society Guidelines. FINDINGS: There is a moderate-sized left pleural effusion. Alveolar consolidation is noted involving the adjace nt left lung consistent with probable compressive atelectasis and/or pneumonia. Multiple left rib fra ctures are noted. There is no pneumothorax. The heart is mildly prominent. Cardiac artery calcificati ons are noted. No mediastinal, hilar or axillary lymphadenopathy is noted. No pulmonary nodule or mas s is noted minimal atelectasis is noted within the right posterior medial lung base. The right lung i s otherwise clear. Gallstones are noted within the gallbladder. Acute fractures involving the left sc apula and left mid clavicle are noted. CONCLUSION: 1. Moderate-sized left pleural effusion with adjacent alveolar consolidation consistent with compress salud atelectasis or pneumonia. Clinical correlation is recommended. 2. No pneumothorax. 3. Multiple left-sided rib fractures, left midclavicular fracture and left scapular fracture are stab le. 4. Minimal atelectasis within the right posterior lung base. 5. Mild cardiomegaly and coronary artery calcifications. 6. Cholelithiasis. Garth Higuera MD on October 23, 2017 at 13:31 Board Certified Radiologist. This report was verified electronically.
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
[2017-10-23] MEDS ORDERED: MAGNESIUM CITRATE SOLN 300 ML BTL PO ONE (14:45)
--- NOTE | 2017-10-23 20:46 | RADRPT ---
EXAM DATE/TIME: 10/23/2017 20:22 [facility] COMPARISON: No previous studies available for comparison. INDICATIONS : Abdominal pain with distention. MEDICAL HISTORY : None. SURGICAL HISTORY : Prostatectomy. ENCOUNTER: Initial ACUITY: 4 - 6 days PAIN SCORE: 4/10 LOCATION: Abdomen. FINDINGS: Evidence for previous surgery in the pelvis. Moderate stool throughout the colon. No significant di stention. Minimal ductal changes left lung base no free air The portion of the bony skeleton visualized is unre markable. CONCLUSION: Moderate stool throughout the colon otherwise negative Yang Burgos MD FACR on October 23, 2017 at 20:42 Board Certified Radiologist. This report was verified electronically.
[2017-10-23] MEDS: ATORVASTATIN 20 MG TAB PO SCH (20:58)
[2017-10-23] MEDS: cloNIDine HCL 0.1 MG TAB PO SCH (20:58)
[2017-10-23] MEDS: REMOVE OLD LIDOCAINE PATCH T-DERMAL SCH (21:00)
[2017-10-24] VITALS (7 sets, daily range): BP systolic 128–144; BP diastolic 68–86; PULSE 67–85; RESP 19–21; TEMP 97.7–98.9; O2SAT 94–98
[2017-10-24] MEDS: HEPARIN SODIUM - SQ 10,000 UNITS/ML VIAL SQ SCH ×3 (02:00→18:20)
[2017-10-24] MEDS: CHLORHEXIDINE GLUCONATE 2 % 1 PACK (2 CLOTHS) TOP SCH (02:58)
[2017-10-24] MEDS: LIDOCAINE HCL 5% PATCH T-DERMAL SCH (08:32)
[2017-10-24] MEDS: glipiZIDE 10 MG TAB PO SCH (08:33)
[2017-10-24] MEDS: amLODIPine BESYLATE 5 MG TAB PO SCH (08:33)
[2017-10-24] MEDS: METHOCARBAMOL 500 MG TAB PO SCH ×3 (08:33→22:45)
[2017-10-24] MEDS: DOCUSATE SODIUM 50 MG/SENNA 8.6 MG TAB PO SCH ×2 (08:33→20:23)
[2017-10-24] MEDS: oxyCODONE/ACETAMINOPHEN 10 MG/325 MG TAB PO PRN ×4 (08:33→21:21)
[2017-10-24] MEDS: METOPROLOL SUCCINATE 25 MG EXTENDED RELEASE TAB PO SCH (08:33)
[2017-10-24] MEDS: GABAPENTIN 100 MG CAP PO SCH ×3 (08:33→18:19)
[2017-10-24] MEDS: LACTULOSE SYRUP 20 GM/30 ML CUP PO SCH (09:00)
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
[2017-10-24] MEDS: INSULIN NovoLIN REGULAR SUPPLEMENTAL SCALE SQ SCH ×4 (09:12→22:47)
[2017-10-24] MEDS: ATORVASTATIN 20 MG TAB PO SCH (20:22)
[2017-10-24] MEDS: cloNIDine HCL 0.1 MG TAB PO SCH (20:23)
[2017-10-24] MEDS: REMOVE OLD LIDOCAINE PATCH T-DERMAL SCH (21:00)
[2017-10-24] MEDS: BACITRACIN TOP OINT 15 GM TUBE TOP SCH (21:00)
[2017-10-25] MEDS: oxyCODONE/ACETAMINOPHEN 10 MG/325 MG TAB PO PRN ×3 (05:52→22:28)
[2017-10-25 08:00] VITALS: BP 143/78; PULSE 73; RESP 16; TEMP 98.6; O2SAT 98
[2017-10-25] MEDS: INSULIN NovoLIN REGULAR SUPPLEMENTAL SCALE SQ SCH ×4 (08:00→21:12)
[2017-10-25 08:41] VITALS: O2SAT 98
[2017-10-25] MEDS: DOCUSATE SODIUM 50 MG/SENNA 8.6 MG TAB PO SCH ×2 (09:00→19:53)
[2017-10-25] MEDS: LACTULOSE SYRUP 20 GM/30 ML CUP PO SCH (09:00)
[2017-10-25] MEDS: BACITRACIN TOP OINT 15 GM TUBE TOP SCH ×3 (09:00→19:56)
[2017-10-25] MEDS: METHOCARBAMOL 500 MG TAB PO SCH ×3 (09:10→22:28)
[2017-10-25] MEDS: glipiZIDE 10 MG TAB PO SCH (09:10)
[2017-10-25] MEDS: GABAPENTIN 100 MG CAP PO SCH ×3 (09:14→18:28)
[2017-10-25] MEDS: amLODIPine BESYLATE 5 MG TAB PO SCH (09:14)
[2017-10-25] MEDS: METOPROLOL SUCCINATE 25 MG EXTENDED RELEASE TAB PO SCH (09:15)
[2017-10-25] MEDS: fentaNYL 50 MCG/HR PATCH T-DERMAL SCH (09:16)
[2017-10-25] MEDS: LIDOCAINE HCL 5% PATCH T-DERMAL SCH (09:17)
[2017-10-25 12:00] VITALS: BP 154/77; PULSE 75; RESP 18; TEMP 98.2; O2SAT 100
--- NOTE | 2017-10-25 12:42 | RADRPT ---
EXAM DATE/TIME: 10/25/2017 12:00 [facility] COMPARISON: US CHEST LEFT, October 22, 2017, 16:37. INDICATIONS : Left pleural effusion. MEDICAL HISTORY : Hypercholesterolemia. Carcinoma, prostate. Diabetes mellitus type 2. HTN. Hepatitis. Cardiac disorder s. SURGICAL HISTORY : Coronary artery stent. Prostatectomy. ENCOUNTER: Subsequent ACUITY: 1 day PAIN SCORE: 3/10 LOCATION: Left chest MEASUREMENTS: SKIN TO PARIETAL PLEURA: 5.3 cm SKIN TO MAX SAFE DEPTH: 7.6 cm ESTIMATED FLUID VOLUME: 155 cc FLUID COMPOSITION: Inadequate fluid FINDINGS: Small left pleural effusion. CONCLUSION: Small left pleural effusion. Cortez Syed MD on October 25, 2017 at 12:38 Board Certified Radiologist. This report was verified electronically.
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
[2017-10-25 17:12] VITALS: O2SAT 100
[2017-10-25] MEDS ORDERED: DO NOT ADM ANY ANTICOAGULANT DRUGS PRN (17:20)
[2017-10-25] MEDS ORDERED: RESP: ALBUTEROL CONC 2.5 MG/0.5 ML NEB ONE (17:32)
--- NOTE | 2017-10-25 18:52 | RADRPT ---
EXAM DATE/TIME: 10/25/2017 18:06 [facility] COMPARISON: CT THORAX W/O CONTRAST, October 23, 2017, 13:22. CHEST SINGLE AP, October 23, 2017, 4:13. INDICATIONS : Post bronchoscopy. MEDICAL HISTORY : Carcinoma, prostate. Cardiovascular disease Hypertension. Diabetes. SURGICAL HISTORY : Prostatectomy. ENCOUNTER: Subsequent ACUITY: 1 week PAIN SCORE: 0/10 LOCATION: Bilateral chest FINDINGS: Moderate left effusion with mostly basilar airspace disease. Minimal right basilar atelectasis. No pn eumothorax. CONCLUSION: 1. Moderate-sized left effusion similar in appearance to October 23. No pneumothorax. Multiple left rib fractures as well as left clavicle and scapular fracture. Fermín Warren MD on October 25, 2017 at 18:48 Board Certified Radiologist. This report was verified electronically.
[2017-10-25] MEDS: ATORVASTATIN 20 MG TAB PO SCH (19:53)
[2017-10-25] MEDS: cloNIDine HCL 0.1 MG TAB PO SCH (19:53)
[2017-10-25 20:00] VITALS: BP 179/99; PULSE 92; RESP 18; TEMP 98.1; O2SAT 93
[2017-10-25] MEDS: REMOVE OLD LIDOCAINE PATCH T-DERMAL SCH (21:39)
[2017-10-25 23:41] VITALS: BP 138/65; PULSE 72; RESP 18; TEMP 98.3
[2017-10-26] MEDS: oxyCODONE/ACETAMINOPHEN 10 MG/325 MG TAB PO PRN ×5 (02:35→20:23)
[2017-10-26] MEDS: HEPARIN SODIUM - SQ 10,000 UNITS/ML VIAL SQ SCH ×3 (02:36→17:24)
[2017-10-26 08:00] VITALS: BP 133/71; PULSE 66; RESP 17; TEMP 98.1; O2SAT 97
[2017-10-26] MEDS: amLODIPine BESYLATE 5 MG TAB PO SCH (08:35)
[2017-10-26] MEDS: LIDOCAINE HCL 5% PATCH T-DERMAL SCH (08:35)
[2017-10-26] MEDS: METOPROLOL SUCCINATE 25 MG EXTENDED RELEASE TAB PO SCH (08:35)
[2017-10-26] MEDS: glipiZIDE 10 MG TAB PO SCH (08:35)
[2017-10-26] MEDS: DOCUSATE SODIUM 50 MG/SENNA 8.6 MG TAB PO SCH ×2 (08:36→20:23)
[2017-10-26] MEDS: GABAPENTIN 100 MG CAP PO SCH ×3 (08:36→17:24)
[2017-10-26] MEDS: METHOCARBAMOL 500 MG TAB PO SCH ×2 (08:36→16:03)
[2017-10-26] MEDS: INSULIN NovoLIN REGULAR SUPPLEMENTAL SCALE SQ SCH ×4 (08:37→21:10)
[2017-10-26] MEDS: LACTULOSE SYRUP 20 GM/30 ML CUP PO SCH (08:39)
[2017-10-26] MEDS: BACITRACIN TOP OINT 15 GM TUBE TOP SCH ×2 (08:40→20:27)
--- NOTE | 2017-10-26 09:17 | RADRPT ---
EXAM DATE/TIME: 10/26/2017 08:48 [facility] COMPARISON: CHEST SINGLE AP, October 25, 2017, 18:06. INDICATIONS : Post bronchoscopy 1 day ago. MEDICAL HISTORY : Carcinoma, prostatic. Cardiovascular disease. Hypertension. Diabetes. SURGICAL HISTORY : Prostatectomy. ENCOUNTER: Subsequent ACUITY: 2 weeks PAIN SCORE: 2/10 LOCATION: Bilateral chest FINDINGS: Significant opacity remains evident in the left lung extending from the mid lung field and base. Right lung remains hypoaerated but otherwise clear. Heart is mildly enlarged. There is no evidence of pneumothorax. CONCLUSION: 1. Significant opacity in the left hemithorax characteristic of lung consolidation and moderate pleur al effusion. 2. No significant change compared to the prior day. 3. No evidence of pneumothorax post bronchoscopy. Jose Cleaning MD on October 26, 2017 at 9:13 Board Certified Radiologist. This report was verified electronically.
--- NOTE | 2017-10-26 09:23 | MR ---
cc: Ish Fonseca MD DATE: 10/25/2017 PREOPERATIVE DIAGNOSIS: Collapse of the left lung and white out of the left lung. POSTOPERATIVE DIAGNOSIS: Collapse of the left lung and a white out of the left lung. OPERATIVE PROCEDURE: Bronchoscopy, lavage of the left lung. SURGEON: Zoë Fonseca MD ANESTHESIA: General. DETAILS OF PROCEDURE: The patient was prepped and draped in usual fashion and the bronchoscopy lab bronchoscope inserted into the trachea through the endotracheal tube. The arborization of the trachea is reached. The left main stem bronchus is filled with thick mucousy and whitish-yellow material. This one is suctioned off. Large amount of this was removed and sent through [facility] for cultures. Bronchial tree is irrigated with saline. Same is repeated on the right side with no more secretions. Bronchoscope was withdrawn. The patient tolerated the procedure well. MD PITER Maynard/TOM , 08:09 PM , 08:38 PM
[2017-10-26 09:35] VITALS: O2SAT 98
[2017-10-26 11:59] VITALS: BP 135/78; PULSE 71; RESP 17; TEMP 98.3; O2SAT 97
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
[2017-10-26] MEDS ORDERED: MAGN30S PO (13:25)
[2017-10-26] MEDS ORDERED: METH500T3 PO (13:25)
[2017-10-26] MEDS ORDERED: OXYC1TAB63 PO (13:25)
[2017-10-26] MEDS ORDERED: PERI PO (13:25)
[2017-10-26] MEDS ORDERED: LIDO1ADH4 T-DERMAL (13:25)
[2017-10-26] MEDS ORDERED: GABA100C4 PO (13:25)
[2017-10-26] MEDS ORDERED: OXYGENTANK NAS.CANULA (13:26)
[2017-10-26] MEDS ORDERED: OXYGENDME NAS.CANULA (13:26)
[2017-10-26 16:00] VITALS: BP 131/72; PULSE 70; RESP 17; TEMP 98.1; O2SAT 96
[2017-10-26 19:22] VITALS: BP 185/88; PULSE 72; RESP 19; TEMP 98.1; O2SAT 96
[2017-10-26] MEDS: ATORVASTATIN 20 MG TAB PO SCH (20:23)
[2017-10-26] MEDS: cloNIDine HCL 0.1 MG TAB PO SCH (20:23)
[2017-10-26] MEDS: MAGNESIUM HYDROXIDE SUSP 30 ML CUP PO PRN (20:25)
[2017-10-26] MEDS: REMOVE OLD LIDOCAINE PATCH T-DERMAL SCH (20:27)
[2017-10-26 20:30] VITALS: BP 149/78
[2017-10-27] MEDS: METHOCARBAMOL 500 MG TAB PO SCH ×3 (00:13→16:06)
[2017-10-27] MEDS: oxyCODONE/ACETAMINOPHEN 10 MG/325 MG TAB PO PRN ×5 (00:15→19:16)
[2017-10-27 00:49] VITALS: BP 115/61; PULSE 68; RESP 18; TEMP 98; O2SAT 94
[2017-10-27] MEDS: HEPARIN SODIUM - SQ 10,000 UNITS/ML VIAL SQ SCH ×3 (02:24→18:34)
[2017-10-27 06:44] LABS: AUTOMATED NEUTROPHIL # 3.7 TH/MM3 (1.8-7.7); BASOPHIL % 0.7 % (0.0-2.0); EOSINOPHIL # 0.4 TH/MM3 (0-0.4); EOSINOPHIL % 5.7 % (0.0-4.0); HEMATOCRIT 25.4 % (39.0-51.0); HEMOGLOBIN 9.1 GM/DL (13.0-17.0); LYMPH % 29.7 % (9.0-44.0); MEAN CELL VOLUME 87.7 FL (80.0-100.0); MEAN CORPUSCULAR HEMOGLOBIN 31.3 PG (27.0-34.0); MEAN CORPUSCULAR HGB CONC 35.7 % (32.0-36.0); MEAN PLATELET VOLUME 7.2 FL (7.0-11.0); MONO % 9.4 % (0.0-8.0); MONOCYTE # 0.6 TH/MM3 (0-0.9); NEUT % 54.5 % (16.0-70.0); PLATELET COUNT 286 TH/MM3 (150-450); RED BLOOD COUNT 2.89 MIL/MM3 (4.50-5.90); RED CELL DISTRIBUTION WIDTH 13.6 % (11.6-17.2); WHITE BLOOD COUNT 6.8 TH/MM3 (4.0-11.0)
[2017-10-27 06:46] LABS: BICARBONATE 30.5 MEQ/L (21.0-32.0); CALCIUM 8.6 MG/DL (8.5-10.1); CREATININE 1.04 MG/DL (0.60-1.30)
[2017-10-27] MEDS: INSULIN NovoLIN REGULAR SUPPLEMENTAL SCALE SQ SCH ×3 (07:50→17:00)
[2017-10-27 07:55] VITALS: BP 117/56; PULSE 67; RESP 17; TEMP 97.7; O2SAT 94
[2017-10-27] MEDS: METOPROLOL SUCCINATE 25 MG EXTENDED RELEASE TAB PO SCH (09:12)
[2017-10-27] MEDS: GABAPENTIN 100 MG CAP PO SCH ×3 (09:12→18:34)
[2017-10-27] MEDS: DOCUSATE SODIUM 50 MG/SENNA 8.6 MG TAB PO SCH (09:12)
[2017-10-27] MEDS: amLODIPine BESYLATE 5 MG TAB PO SCH (09:13)
[2017-10-27] MEDS: glipiZIDE 10 MG TAB PO SCH (09:13)
[2017-10-27] MEDS: BACITRACIN TOP OINT 15 GM TUBE TOP SCH (09:16)
[2017-10-27] MEDS: LIDOCAINE HCL 5% PATCH T-DERMAL SCH (09:17)
[2017-10-27] MEDS: LACTULOSE SYRUP 20 GM/30 ML CUP PO SCH (09:20)
[2017-10-27 11:54] VITALS: BP 135/69; PULSE 74; RESP 17; TEMP 98.2; O2SAT 99
[2017-10-27 15:59] VITALS: BP 129/74; PULSE 80; RESP 17; TEMP 98; O2SAT 95
== END 2017-10-27 19:52 | disposition home or self-care (01) | DRG 964 ==
LOC: NEPC 00:04 → NEDA 00:23 → N03A 02:40 → N06B 20:25
PROVIDERS: ADMIT Surgery Trauma Surgery; ATTEND Surgery Trauma Surgery
PROC: 0T9B70Z Drainage of Bladder with Drainage Device, Via Natural or Artificial Opening (ICD-10-PCS; 2017-10-19)
PROC: 0B978ZZ Drainage of Left Main Bronchus, Via Natural or Artificial Opening Endoscopic (ICD-10-PCS; principal; 2017-10-22)
PROC: 0B938ZZ Drainage of Right Main Bronchus, Via Natural or Artificial Opening Endoscopic (ICD-10-PCS; 2017-10-22)
PROC: 0B9B8ZX Drainage of Left Lower Lobe Bronchus, Via Natural or Artificial Opening Endoscopic, Diagnostic (ICD-10-PCS; 2017-10-22)
PROC: 0B948ZX Drainage of Right Upper Lobe Bronchus, Via Natural or Artificial Opening Endoscopic, Diagnostic (ICD-10-PCS; 2017-10-22)
PROC: 0B988ZX Drainage of Left Upper Lobe Bronchus, Via Natural or Artificial Opening Endoscopic, Diagnostic (ICD-10-PCS; 2017-10-22)
PROC: 0B968ZX Drainage of Right Lower Lobe Bronchus, Via Natural or Artificial Opening Endoscopic, Diagnostic (ICD-10-PCS; 2017-10-22)
PROC: 0B978ZZ Drainage of Left Main Bronchus, Via Natural or Artificial Opening Endoscopic (ICD-10-PCS; 2017-10-25)
PROC: 0B938ZZ Drainage of Right Main Bronchus, Via Natural or Artificial Opening Endoscopic (ICD-10-PCS; 2017-10-25)
DX: S42.002A Fracture of unspecified part of left clavicle, initial encounter for closed fracture (principal); S36.031A Moderate laceration of spleen, initial encounter; S22.42XA Multiple fractures of ribs, left side, initial encounter for closed fracture; S27.321A Contusion of lung, unilateral, initial encounter; S27.1XXA Traumatic hemothorax, initial encounter; J90 Pleural effusion, not elsewhere classified; N17.9 Acute kidney failure, unspecified; J98.11 Atelectasis; T17.890A Other foreign object in other parts of respiratory tract causing asphyxiation, initial encounter; S42.112A Displaced fracture of body of scapula, left shoulder, initial encounter for closed fracture; I10 Essential (primary) hypertension; E11.9 Type 2 diabetes mellitus without complications; E78.5 Hyperlipidemia, unspecified; I25.10 Atherosclerotic heart disease of native coronary artery without angina pectoris; R33.9 Retention of urine, unspecified; V29.9XXA Motorcycle rider (driver) (passenger) injured in unspecified traffic accident, initial encounter; Z95.5 Presence of coronary angioplasty implant and graft; Z79.84 Long term (current) use of oral hypoglycemic drugs; Z85.46 Personal history of malignant neoplasm of prostate
CPT/HCPCS: 31622; 71045; 71250; 71260; 74019; 74177; 76604; 76775; 76937; 80048; 80053; 81001; 82550; 82552; 82570; 82948; 84300; 85014; 85018; 85025; 85027; 85610; 86850; 86900; 86901; 87015; 87070; 87102; 87116; 87186; 87205; 87206; 87641; 93005; 94150; 94618; 94640; 94664; 94667; 94668; 99283; J0131; J1170; J1644; J2270; J3010; J7030; J7611; Q9967